=== PATIENT | female | born 1945 | race Caucasian/White ===

== ENCOUNTER → 2017-12-14 | Outpatient (CLI) | payer MEDICARE, BC ==
[~2017-12-14] MED LIST: ACET-1600 PO; ACET500T71 PO; ALPR0.257 PO; AMLO10TA2 PO; ASCO100019 PO; ASPI-621 PO; ASPI325T17 PO; CALC-141 PO; CARV12.52 PO; CEFD300C37 PO; CELE200C PO; CIPR500T87 PO; DIPH25CA81 PO; DOXY100T PO; FAMO20TA7 PO; FERR325T18 PO; FURO20TA3 PO; HYDR-3237 PO; HYDR-3343 PO; LACT1CAP61 PO; LEVO500T47 PO; LEVO88TA4 PO; METO25TA35 PO; MOME17SP NS; MULT-187 PO; ONDA4TAB7 PO; OXYB5TAB7 PO; OXYC1TAB7 PO; POLY17PO5 PO; POTA20TA14 PO; POTASSIUM CL ER PO; PRED50TA PO; SCOP1PAT; SIME125T40 PO; SIMV40TA3 PO; ST.300TA3 PO; TRAM50TA2 PO; VALS160T3 PO; VALS1TAB24 PO; WHEA1POW5 PO
== END | disposition home or self-care (01) ==
LOC: CFH 08:36
PROVIDERS: ATTEND Specialist
DX: C83.39 Diffuse large B-cell lymphoma, extranodal and solid organ sites (principal); K76.9 Liver disease, unspecified; Q43.3 Congenital malformations of intestinal fixation
CPT/HCPCS: 71250; 74176

== ENCOUNTER → 2018-09-12 | Outpatient (CLI) | payer MEDICARE, BC ==
[~2018-09-12] MED LIST changes: -AMLO10TA2 PO; +AMLO10TA6 PO; -SCOP1PAT; +SCOP1PAT11
== END | disposition home or self-care (01) ==
LOC: CFH 12:00
PROVIDERS: ATTEND Family Medicine
DX: Z12.31 Encounter for screening mammogram for malignant neoplasm of breast (principal); Z85.72 Personal history of non-Hodgkin lymphomas
CPT/HCPCS: 77067

== ENCOUNTER → 2018-12-27 | Outpatient (CLI) | payer MEDICARE, BC ==
[~2018-12-27] MED LIST changes: -AMLO10TA6 PO; +AMLO10TA8 PO; -ASPI-621 PO; +ASPI81TA45 PO
== END | disposition home or self-care (01) ==
LOC: CFH 11:57
PROVIDERS: ATTEND Internal Medicine Hematology & Oncology
DX: N20.0 Calculus of kidney (principal); C83.39 Diffuse large B-cell lymphoma, extranodal and solid organ sites; Q43.3 Congenital malformations of intestinal fixation
CPT/HCPCS: 71250; 74176

== ENCOUNTER → 2019-12-14 | Outpatient (CLI) | payer MEDICARE, BC ==
[~2019-12-14] MED LIST changes: +ACET500T64 PO; -ACET500T71 PO; +OXYB5TAB10 PO; -OXYB5TAB7 PO; +SIMV40TA20 PO; -SIMV40TA3 PO; -VALS1TAB24 PO; +VALS1TAB25 PO
== END | disposition home or self-care (01) ==
LOC: CFH 11:58
PROVIDERS: ATTEND Internal Medicine Hematology & Oncology
DX: C83.39 Diffuse large B-cell lymphoma, extranodal and solid organ sites (principal)
CPT/HCPCS: 71250; 74176